=== PATIENT | male | born 1950 | race Caucasian/White ===

== ENCOUNTER → 2025-04-27 | Outpatient (REF) | payer MEDICARE | LOC: US 09:35 | PROVIDERS: ATTEND Nurse Practitioner Family | DX: K76.89 Other specified diseases of liver (principal) | CPT/HCPCS: 76705 ==

== ENCOUNTER → 2025-06-10 | Outpatient (REF) | payer MEDICARE ==
[~2025-06-10] MED LIST: IOPAMIDOL 370 MG/ML 100 ML INFUS..BTL INJ ONE
[2025-06-10 10:15] LABS: EST GLOMERULAR FILTRATION RATE 94.0 ML/MIN (>=60)
== END ==
LOC: CT 08:55
PROVIDERS: ATTEND Surgery
DX: K82.1 Hydrops of gallbladder (principal)
CPT/HCPCS: 36415; 74177; 82565; 84520; Q9967